=== PATIENT | female | born 1985 | race Caucasian/White ===

== ENCOUNTER 2018-02-09 10:29 | Day surgery (SDC) | payer OTHER ==
[~2018-02-09] VITALS: Ht 165.1 cm; Wt 113.5 kg
[~2018-02-09 10:29] MED LIST: ALDACTONE50 MG PO; AMBIEN10 MG PO; ENDOCET 5-3251 EACH PO; ERGOCALCIF50000 UNIT PO; FLEXERIL10 MG PO; IBUPROFEN800 MG PO; MIRENA52 MG IY; MOBIC15 MG PO; NAPROSYN-EC500 MG PO; NAPROSYN500 MG PO; PERCOCET 5/31 TABLET PO; TRAMADOL HCL50 MG PO; TUMS500 MG PO; WELLBUTRIN XL150 MG PO; WELLBUTRIN XL300 MG PO; ZANTAC75 M1 PO; ZOFRAN ODT4 MG PO; ZYRTEC10 M3 PO
[2018-02-09 10:57] VITALS: BP 135/85
[2018-02-09 14:22] VITALS: BP 110/63
[2018-02-09 15:10] VITALS: BP 106/72
== END 2018-02-09 15:12 | disposition home or self-care (01) ==
LOC: SDC 10:29
DX: N76.4 Abscess of vulva (principal); M79.7 Fibromyalgia; K21.9 Gastro-esophageal reflux disease without esophagitis; Z87.891 Personal history of nicotine dependence
CPT/HCPCS: 87070; 87075; 87205; J0330; J0690; J1100; J2405; J3010; Q0175; S0020